=== PATIENT | female | born 1995 | race Caucasian/White ===

== ENCOUNTER 2018-08-21 07:46 | Emergency (ER) | payer OTHER, SELFPAY ==
[2018-08-21 07:54] VITALS: BP 127/77; PULSE 72; RESP 16; TEMP 36.3; O2SAT 97
--- NOTE | 2018-08-21 08:06 | ED.GENADUL_ITS ---
Discharge Plan Disposition Patient Disposition: HOME Condition: Stable Discharge Details Chief Complaint: Sorethroat Clinical Impression: Pharyngitis, URI (upper respiratory infection) Primary Care Provider: Judy Muller ED Provider: Re Franklin Home Meds and New Rx's Prescriptions: Continued medroxyprogesterone 150 MG/1 ML suspension 150 mg IM [id number] Qty: 1 RF: 4 Discharge Instructions Instructions: Pharyngitis (ED), Upper Respiratory Infection (ED) Additional Instructions: Drink plenty of fluids and get plenty of rest. Gargle with salt water, use Chloraseptic throat spray, or take Sucrets or other throat lozenges to help with sore throat. Alternate Tylenol and Motrin as needed and directed for pain. Use [id number] symptomatic treatment for your cold symptoms and sore throat. Follow-up with a primary care doctor in 1 week for reevaluation as needed. Return immediately to the emergency department any worsening or new concerning symptoms. Discharge Data Discharge Date/Time-TO BE ENTERED AT DEPARTURE: 08/21/18 08:30 Discharge Physician: Re Franklin Medical Decision Making 23-year-old female with a history of asthma currently not on any medications, who presents with sore throat for 2 weeks, runny nose and cough for the past week. Eating and drinking well and denies any fever. Did not receive a flu shot this year positive sick contacts recently. Vitals within normal limits. Afebrile. Patient appears nontoxic and in no acute distress. Very minimal sinus tenderness otherwise normal ENT exam. Normal oropharynx and no lymphadenopathy. Discussed with patient that her symptoms can be due to viral pharyngitis, URI, postnasal drip, flu, mono. Discussed that with normal oropharynx and no fever and no significant body aches or fatigue, flu and mono less likely. Patient was instructed to get plenty of rest, drink plenty of fluids, alternate Tylenol and Motrin, and use symptomatic treatment such as salt water gargles, Chloraseptic spray, Sucrets, and [id number] cough and cold medicine. Patient instructed to follow with primary care doctor return here immediately at anytime if worse. Patient declines work note. HPI General Mode of arrival: ambulatory . Date/Time Provider Initiated Documentation: 08/21/18 08:04 . Limitations to Documentation: no limitations . Information obtained by: patient . HPI Narrative: Pt is a 23yo F who presents to the ED with a complaint of sore throat for the past 2 weeks, runny nose and cough for the past week. Patient admits to recent sick contacts with patients with similar symptoms and diagnosed with the flu. Patient denies fever and states she otherwise has been eating and drinking normally. She has been taking Tylenol at times for pain, last dose yesterday morning. She states she did not receive the flu shot this year. Related Data Home Medications Medication Instructions Recorded Confirmed medroxyprogesterone 150 mg IM [id number] #1 vial 09/18/17 06/02/18 Previous Rx's Medication Instructions Recorded medroxyprogesterone 150 mg IM [id number] #1 vial 09/18/17 Allergies Allergy/AdvReac Type Severity Reaction Status Date / Time No Known Allergies Allergy Unverified 06/02/18 15:52 General Stated Complaint: Sorethroat MAE: 4 Review of Systems Review of Systems All systems reviewed & are unremarkable except as noted in HPI and below Constitutional Reports as per HPI, Denies chills and Denies fever(s) Eyes Denies blurry vision ENT Denies dizziness, Reports nasal congestion, Reports nasal discharge, Reports sore throat and Denies throat swelling Cardiovascular Denies chest pain and Denies dyspnea Respiratory Reports cough and Denies dyspnea Gastrointestinal Denies abdominal pain, Denies diarrhea and Denies vomiting Genitourinary Denies hematuria and Denies dysuria Musculoskeletal Denies back pain and Denies numbness Integumentary/Breasts Denies lesions and Denies rash Neurologic Denies dizziness and Denies numbness Allergic/Immunologic Denies throat swelling [facility] Medical History Asthma (Chronic) Surgical History History of tonsillectomy (Chronic) Tonsillectomy (~2005) Family History Mother Diabetes VTE (venous thromboembolism) Father Essential hypertension Thrombophilia Stroke Sister No problems noted. Sister No problems noted. Sister No problems noted. Sister No problems noted. Sister No problems noted. Brother No problems noted. Brother No problems noted. Grandfather Hyperlipidemia Neoplasm Grandfather Stroke Grandmother Diabetes Essential hypertension Heart disease Hyperlipidemia Asthma Grandmother No problems noted. Social History Smoking/Tobacco Use Status: Never alcohol intake: never substance use type: does not use Female Reproductive History Menstrual control method: progesterone injection Exam Const General: cooperative, healthy appearing and no acute distress HENMT Head: normal to inspection Ears: hearing grossly normal bilaterally and TM's normal bilaterally General nose exam: external nose normal Face and sinus: normal facial exam and sinus tenderness frontal (minimal) and maxillary (minimal ) Mouth: oral mucosae normal Throat: posterior oropharynx normal, uvula midline, tonsils absent and no uvular edema Eyes General: appearance normal, both eyes and all related structures Pupils: PERRL EOM: EOM intact bilaterally Neck Neck: normal visual inspection and No submandibular swelling Lymphatic: no lymphadenopathy noted Chest Chest: normal inspection of the chest and no tenderness Resp Effort & Inspection: normal respiratory effort and able to speak in complete s entences Auscultation: clear to auscultation bilaterally Cardio Rate: regular rate Rhythm: regular rhythm GI Inspection: normal to inspection Palpation: soft, not firm, not rigid and nontender Auscultation: normal bowel sounds Skin General skin exam: no rashes or lesions noted Neuro General: alert, awake and oriented x3 Cognition: normal cognition Speech: speech normal Motor: muscle tone normal throughout Sensory Exam: no sensory deficits noted Extrem General: normal to inspection, full ROM, normal capillary refill, no calf tenderness bilaterally and no edema Psych Appearance: grossly normal Mental Status: mental status grossly normal Speech and Movement: speech and movement normal Affect: normal affect Course Vital Signs Temperature 97.3 F L 08/21/18 07:54 Pulse 72 08/21/18 07:54 Respiratory Rate 16 08/21/18 07:54 Blood Pressure 127/77 08/21/18 07:54 Pulse Oximetry 97 08/21/18 07:54 Temperature 97.3 F L 08/21/18 07:54 Temperature Source Temporal Artery Scan 08/21/18 07:54 Pulse 72 08/21/18 07:54 Respiratory Rate 16 08/21/18 07:54 Respiratory Effort Non-Labored 08/21/18 07:59 Blood Pressure 127/77 08/21/18 07:54 Blood Pressure Position Sitting 08/21/18 07:54 Pulse Oximetry 97 08/21/18 07:54 Oxygen Delivery Method Room Air 08/21/18 07:54 Oxygen Flow Rate 0 08/21/18 07:54 Pain Level 6 08/21/18 07:54 Lab/Test Results Lab/Test Results: 08/21/18 07:50 Pharynx Streptococcus Screen (MADELIN) - Pending POC Strep Test-HILARY(Rapid) Start: 08/21/18 07:54 Freq: .Rapid Strep Test Status: Active Protocol: Document 08/21/18 07:59 SGL (Rec: 08/21/18 07:59 [id number]) Strep test-HILARY(Rapid)-POC POC-Strep test-HILARY (Rapid) Negative POC-Strep test-HILARY (Rapid) Negative
== END 2018-08-21 08:30 | disposition home or self-care (01) ==
LOC: ER 08:27
PROVIDERS: Emergency Provider Physician Assistant; PCP Nurse Practitioner Gerontology
DX: J02.9 Acute pharyngitis, unspecified (principal); J06.9 Acute upper respiratory infection, unspecified
CPT/HCPCS: 87880; 99282; 87081

== ENCOUNTER 2018-08-25 14:47 | Outpatient (REF) | payer OTHER, SELFPAY ==
--- NOTE | 2018-08-25 13:15 | PAPFT_PTH ---
PATIENT: Maisha Deras LOC: [facility] U#:[id number] AGE/SX: 23/F ROOM: RE08/25/[address]: Isabelle Le NP : 1995 BED: DIS: 08/25/2018 SPEC #: [id number] RECD: 08/25/18 17:57 STATUS: MARE COLLADO #: [id number] ABDI: 08/25/18 13:[address]: Isabelle Le NP DEPT: [facility] Cytology RECD BY: Rebekah Morales ENTERED: 08/25/18 17:57 SP TYPE: PAPFT OTHR DR: Judy Muller Tissues: 1 - CX/ENDOCX FOR PAP SMEARS Procedures: PAP THIN PREP/UVM Screening Comments: [id number] (CHLAMYDIA/GC)
[2018-08-26 13:06] LABS: Chlamydia Result Negative; GC Result Negative; Specimen Description SEE COMMENTS
== END 2018-08-25 15:07 ==
LOC: LBN 14:47
PROVIDERS: PCP Nurse Practitioner Gerontology; Visit Provider Nurse Practitioner Women's Health
DX: Z11.3 Encounter for screening for infections with a predominantly sexual mode of transmission (principal); Z12.4 Encounter for screening for malignant neoplasm of cervix; Z11.51 Encounter for screening for human papillomavirus (HPV)
CPT/HCPCS: 87491; 87591; 88142

== ENCOUNTER 2019-01-15 09:54 | Emergency (ER) | payer SELFPAY ==
[2019-01-15 09:58] VITALS: BP 127/77; PULSE 118; RESP 12; TEMP 36.9; O2SAT 97
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
== END 2019-01-15 10:21 | disposition home or self-care (01) ==
PROVIDERS: Emergency Provider Physician Assistant; PCP Nurse Practitioner Gerontology
DX: S06.0X0A Concussion without loss of consciousness, initial encounter (principal); Y00.XXXA Assault by blunt object, initial encounter; Y99.0 Civilian activity done for income or pay
CPT/HCPCS: 99282

== ENCOUNTER 2020-11-04 01:45 | Emergency (ER) | payer OTHER, SELFPAY ==
[2020-11-04 01:50] VITALS: BP 147/120; PULSE 109; RESP 18; TEMP 36.7; O2SAT 98
--- NOTE | 2020-11-04 02:00 | RT.EKG_ITS ---
APPROVED REPORT Exam: Resting ECG Patient Location: E HR:85 bpm ECG Measurements Heart Rate 85 AXIS VT 124 P 46 QRSd 68 QRS 41 QT 348 T 21 QTc 416 Conclusion Sinus rhythm...normal P axis, V-rate 60- 99 I have reviewed and interpreted ECG and agree with software generated interpretation. Normal Electrocardiogram
[2020-11-04 02:06] VITALS: BP 147/111
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
[2020-11-04] MEDS: LORazepam 1 MG TAB PO ×2 (02:19→03:19)
[2020-11-04 02:53] LABS: *AMPHETAMINES SCREEN URINE Negative (Negative); *BARBITURATES SCREEN URINE Negative (Negative); *BENZODIAZEPINES SCREEN URINE Negative (Negative); Cannabinoids THC Negative (Negative); Cocaine Screen,Urine Negative (Negative); METHADONE URINE SCREEN Negative (Negative); OPIATES URINE SCREEN Negative (Negative)
[2020-11-04 02:54] VITALS: BP 129/84; PULSE 94; RESP 18; O2SAT 100
[2020-11-04 02:54] LABS: Tricyclic Antidepressants Negative (Negative)
--- NOTE | 2020-11-04 06:41 | NUR.NOTE ---
REFERRAL TO CARE MANAGEMENT FOR FOLLOW CARE REGARDING ED VISIT. Nursing Note:
== END 2020-11-04 03:33 | disposition home or self-care (01) ==
PROVIDERS: Emergency Provider Student in an Organized Health Care Education/Training Program; PCP Nurse Practitioner Family
DX: F41.0 Panic disorder [episodic paroxysmal anxiety] (principal); F44.7 Conversion disorder with mixed symptom presentation; M54.2 Cervicalgia; T76.11XA Adult physical abuse, suspected, initial encounter; Y07.03 Male partner, perpetrator of maltreatment and neglect
CPT/HCPCS: 80307; 81025; 93005; 99283; 93010

== ENCOUNTER 2021-11-01 13:23 | Emergency (ER) | payer OTHER, SELFPAY ==
[2021-11-01 13:25] VITALS: BP 119/96; PULSE 101; RESP 16; TEMP 36.2; O2SAT 97
[2021-11-01 13:45] VITALS: RESP 16
[2021-11-01] MEDS: Ondansetron 4 MG/2 ML VIAL IVP (14:07)
[2021-11-01] MEDS: Normal Saline 1,000 ML 1000 ML IV ×2 (14:08→15:28)
[2021-11-01 14:33] LABS: Abs Immature Grans 0.04 10^3/uL (0.0-0.06); Absolute Basophil Count 0.01 10^3/uL (0.0-0.2); Absolute Eosinophil Count 0.08 10^3/uL (0.0-0.7); Absolute Lymphocyte Count 0.53 10^3/uL (1.2-3.4); Absolute Monocyte Count 0.63 10^3/uL (0.1-0.8); Basophils % 0.1; Eosinophils % 0.7; HCT 44.4 % (36.0-46.0); HGB 15.1 g/dL (11.2-15.7); Immature Grans % 0.4; Lymphocytes % 4.8; MCH 30.3 pg (27.0-33.0); MPV 8.7 fL (8.0-11.0); Monocytes % 5.7; Neutrophils % 88.3; Nucleated RBC 0 %; Platelet Count 381 10^3/uL (130-400); RBC 4.99 10^6/uL (3.93-5.22); RDW 11.9 % (11.7-14.6); WBC 10.99 10^3/uL (4.4-10.8)
[2021-11-01 14:38] LABS: Bilirubin Negative (Negative); Blood Moderate (Negative); Clarity Clear (Clear); Glucose Negative (Negative); Ketones Negative (Negative); Leukocyte Esterase Negative (Negative); Nitrite Negative (Negative); Urobilinogen 0.2 EU/dL (Up TO 0.2)
[2021-11-01 14:47] LABS: ALT 24 U/L (14-59); AST 13 U/L (15-37); Albumin 4.9 g/dL (3.4-5.0); Alkaline Phosphatase 75 U/L (46-116); Anion Gap 12.2 mmol/L (3-11); BUN 24 mg/dL (7-18); Bilirubin, Total 0.8 mg/dL (0.2-1.0); CO2 25.8 mmol/L (21.0-32.0); CREATININE 1.1 mg/dL (0.55-1.02); Calcium 9.1 mg/dL (8.5-10.1); Chloride 101 mmol/L (98-107); Glucose 133 mg/dL (74-106); Potassium 3.7 mmol/L (3.5-5.1); Sodium 139 mmol/L (136-145); Total Protein 8.7 g/dL (6.4-8.2)
[2021-11-01 14:54] LABS: Epithelial Cells Few HPF (Negative); WBC Negative HPF (0-5)
[2021-11-01 14:55] LABS: Bacteria Negative HPF (Negative); C & S Indicated? No; Casts Negative LPF (Negative); Crystals Negative HPF (Negative); Mucus Trace (Negative)
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
[2021-11-01 16:28] VITALS: BP 101/65; PULSE 90; RESP 17; TEMP 36.8; O2SAT 96
== END 2021-11-01 16:49 | disposition home or self-care (01) ==
LOC: ER 16:39
PROVIDERS: Emergency Provider Nurse Practitioner Family; PCP Nurse Practitioner Family
DX: T50.1X1A Poisoning by loop [high-ceiling] diuretics, accidental (unintentional), initial encounter (principal); R11.2 Nausea with vomiting, unspecified; F41.1 Generalized anxiety disorder
CPT/HCPCS: 36415; 80053; 81025; 96361; 96374; 99284; 81003; 81015; 83735; 85025; 99283; J2405

== ENCOUNTER 2023-11-30 14:45 | Emergency (ER) | payer SELFPAY ==
[2023-11-30 14:47] VITALS: BP 161/97; PULSE 127; RESP 18; TEMP 37.1; O2SAT 99
--- NOTE | 2023-11-30 15:00 | RT.EKG_ITS ---
APPROVED REPORT Exam: Resting ECG Reason for Exam: heart pounding Patient Location: E HR:105 bpm ECG Measurements Heart Rate 105 AXIS NM 126 P 47 QRSd 70 QRS 16 QT 321 T -2 QTc 424 Conclusion Sinus tachycardia at a rate of 105 without acute ischemic change with normal intervals.
--- NOTE | 2023-11-30 15:05 | W.ED.GENAD ---
Discharge Plan Disposition Patient Disposition: Home Condition: Stable Discharge Details Clinical Impression: Heart palpitations, Dentalgia Primary Care Provider: Yesi Mas ED Provider: Kath Mckeon Home Meds and New Rx's Prescriptions: New penicillin V potassium 500 mg tablet 500 mg PO QID Qty: 28 0RF No Action Kyleena 17.5 mcg/24 hr (5 years) intrauterine device 1 insert IY ONCE Qty: 1 0RF citalopram 10 mg tablet 10 mg PO DAILY Patient Comments: TAKE 1 TAKE AB BY MOUTH ONCE DAILY dextroamphetamine-amphetamine 15 mg tablet 15 mg PO BID Patient Comments: TAKE ONE TABLET BY MOUTH TWICE A DAY acetaminophen [Tylenol] 325 mg Tablet 650 mg PO DAILY Discharge Instructions Instructions: Heart Palpitations (ED), Toothache (ED) Additional Instructions: Please follow-up with your dentist. Continue taking over the counter medication as needed. Return to the Emergency Department with any worsening symptoms or any other concerns. Discharge Data Discharge Date/Time-TO BE ENTERED AT DEPARTURE: 11/30/23 15:30 HPI General Date/Time Provider Initiated Documentation: 11/30/23 14:48. HPI Narrative: The patient is a 28-year-old female with a history of ADHD, anxiety, panic attacks who comes emergency department for dental pain, heart pounding sensation. The patient reports that she has had dental issue for the past 4 months but has been having a hard time seeing her dentist because of insurance reasons. Reports last night the left upper molar started bothering her once more. Reports normally when it does act up she takes [id number] medication which helps and goes away after 4 hours but it had not. Reports she subsequently felt the heart pounding sensation and felt that her left arm from the elbow down was tingly. Denies any trauma or injury to her mouth. Reports she has tasted metallic taste in her mouth during this. Denies any fevers or chills. Denies any cough or shortness of breath. Denies nausea or vomiting. Denies abdominal pain. Denies concern. Reports she was at her baseline health prior. Related Data Home Medications Medication Instructions Recorded Confirmed levonorgestrel 17.5 mcg/24 hrs 1 insert intrauterine ONCE #1 ea 08/25/18 11/30/23 (5yrs) 19.5mg intrauterine device (Kyleena) acetaminophen 325 mg tablet 650 mg PO DAILY 11/01/21 11/30/23 (Tylenol) citalopram 10 mg tablet 10 mg PO DAILY 11/30/23 11/30/23 dextroamphetamine-amphetamine 15 15 mg PO BID 11/30/23 11/30/23 mg tablet penicillin V potassium 500 mg 500 mg PO QID #28 tabs 11/30/23 tablet Previous Rx's Medication Instructions Recorded levonorgestrel 17.5 mcg/24 hrs 1 insert intrauterine ONCE #1 ea 08/25/18 (5yrs) 19.5mg intrauterine device (Kyleena) penicillin V potassium 500 mg 500 mg PO QID #28 tabs 11/30/23 tablet Allergies Allergy/AdvReac Type Severity Reaction Status Date / Time No Known Allergies Allergy Verified 11/30/23 14:52 General Stated Complaint: DentalOral MAE: 3 Review of Systems Narrative: Review of systems are negative except as mentioned. Exam Narrative Exam Narrative: The patient is in no acute distress. She is handing her secretions well and speaking in full sentences with clear voice. Oral mucosal membranes are moist. Patient has tenderness to palpation to tooth #15 without visualized or palpable gumline abscess. She has no fullness to the soft or hard palate or the floor of the mouth. She has no trismus. She has no submandibular fullness. Her heart is regular in rate and rhythm. Her lungs are clear to auscultation bilaterally. Her abdomen is soft with normal bowel sounds and nontender to palpation throughout. The patient has equal radial pulses. No midline C-spine tenderness is noted to palpation. The patient has equal strength and sensation which is symmetric to bilateral upper extremities. The patient has intact sensation to the back of the neck and head with equal strength to bilateral deltoids, biceps, wrist and finger extension, finger flexion and able to move fingers apart with equal strength bilaterally. The patient has intact trunk sensation to light touch throughout. Course Vital Signs Vital signs: Vital Signs Temperature 37.1 C 11/30/23 14:47 Pulse 127 H 11/30/23 14:47 Respiratory Rate 18 11/30/23 14:47 Blood Pressure 161/97 H 11/30/23 14:47 Pulse Oximetry 99 11/30/23 14:47 Temperature 37.1 C 11/30/23 14:47 Pulse 127 H 11/30/23 14:47 Respiratory Rate 18 11/30/23 14:47 Blood Pressure 161/97 H 11/30/23 14:47 Pulse Oximetry 99 11/30/23 14:47 Oxygen Delivery Method Room Air 11/30/23 14:47 Oxygen Flow Rate 0 11/30/23 14:47 Medical Decision Making Apart from tenderness to palpation to her tooth physical exam is otherwise benign without any focal deficit. She arrives hemodynamically stable. She has no personal risk factors for cardiac or lung disease and denies family history of early onset cardiac disease. I ordered an EKG and if unremarkable plan is to prescribe antibiotics and will hold off on cardiac workup. She describes her chest discomfort as pounding sensation since dental pain onset last night and has been constant. EKG is done. Apart from tachycardia it is nondiagnostic. I have updated the patient on EKG interpretation and plan for discharge. I told her I will send a prescription to her preferred pharmacy for antibiotics for the next few days. I encouraged her to follow-up with her dentist and urged her to return to the emergency department with any worsening symptoms or any other concerns. Tachycardia improved on its own prior to discharge. Quality:[facility] Health Related Social Needs: No Data to Display [facility] All Active Problems (Updated 11/30/23 @ 15:16 by Kath Mckeon DO) Dentalgia (Acute) Heart palpitations (Acute) Panic attack (Acute) Major depressive disorder (Chronic) IUD surveillance (Chronic) Kyleena inserted 08/2018 Generalized anxiety disorder (Chronic) ADHD (attention deficit hyperactivity disorder) (Chronic) Allergic rhinitis (Chronic) Medical History Asthma Surgical History S/P tonsillectomy Family History Mother Diabetes Father Thrombophilia Stroke Hypertension Sister No problems noted. Sister No problems noted. Sister No problems noted. Sister No problems noted. Sister No problems noted. Brother No problems noted. Brother No problems noted. Maternal Grandfather Hyperlipidemia Neoplasm Maternal Grandmother Asthma Hypertension Heart disease Hyperlipidemia Diabetes Paternal Grandfather Stroke Paternal Grandmother No problems noted. Social History (Reviewed 11/02/21 @ 11:15 by BHAVANA Callaway Smoking/Tobacco Use Status: Current every day Tobacco Type: e-cigarettes Smoking risk assessment performed?: Yes Alcohol Intake: current Alcohol Intake frequency: a few times a week Drug use: Never Substance use type: does not use Do you feel safe at home: Yes Do you feel safe in your relationship?: Yes Female Reproductive History Menstrual control method: progestin IUCD (Kyleena Lot [id number] EXP 08/2020) History History 0 Para Hx # Term Pregnancies Multiple births Hx # Pregnancies Ectopic pregnancies AB induced Hx Number of Living Children AB spontaneous
[2023-11-30 15:28] VITALS: BP 161/97; PULSE 89; RESP 18; TEMP 37.1; O2SAT 99
== END 2023-11-30 15:30 | disposition home or self-care (01) ==
LOC: ER 15:36
PROVIDERS: Emergency Provider Emergency Medicine; PCP Nurse Practitioner Family
DX: K08.89 Other specified disorders of teeth and supporting structures (principal); R00.2 Palpitations; F41.9 Anxiety disorder, unspecified; F17.290 Nicotine dependence, other tobacco product, uncomplicated
CPT/HCPCS: 93005; 99283; 93010

== ENCOUNTER 2025-03-30 15:05 | Outpatient (REF) | payer SELFPAY ==
[2025-04-03 12:09] LABS: Chlamydia Result Negative (Negative); GC Result Negative (Negative)
== END 2025-03-30 15:06 | disposition home or self-care (01) ==
LOC: LBN 15:05
PROVIDERS: PCP Nurse Practitioner Family; Visit Provider Obstetrics & Gynecology
DX: Z11.3 Encounter for screening for infections with a predominantly sexual mode of transmission (principal)
CPT/HCPCS: 87491; 87591; 87480; 87510; 87660

== ENCOUNTER 2025-04-05 08:25 | Day surgery (SDC) | payer OTHER, SELFPAY ==
[2025-04-05] VITALS (16 sets, daily range): BP systolic 100–134; BP diastolic 56–92; PULSE 62–95; RESP 13–21; TEMP 36.2–37; O2SAT 96–100; BMI 32.1
--- NOTE | 2025-04-05 08:03 | W.PM.HP.N ---
Date of service: 04/05/25 Time of Service: 08:14 Assessment and Plan Assessment and plan (1) H/O psychological trauma, presenting hazards to health: Status: Acute Assessment and plan: 29 yo G0 - H/O anxiety / depression / ADHD - BMI 32.4 - Sexually active; non-committed heterosexual - Contraception: Kyleena (from 2019) - H/O sexual abuse: Denies - Last pap smear 08/25/2018: Neg cytology - Completed HPV vaccine - - - - - - - - - - - - - 03/30/2025 (Evelinlinda): Patient presents today for STD testing. States that she has been sexually active with 2 different partners in the last year; most recent 1 recently informed her that he was unfaithful. She denies any concerning symptoms. She request testing for gonorrhea, chlamydia, and trichomonas; states that she has had HIV, syphilis, and hepatitis testing within the last 2 months at another facility. Patient noted to be due for Pap smear and have an outdated means of contraception. Patient expresses profound hesitation regarding replacement of Kyleena citing a very traumatic experience at her first placement. Patient exhibits notable hesitation to replacement given her initial experience. We discussed varying levels of potential intervention to accommodate her concerns. We discussed the potential for a support person with premedication and use of lidocaine during procedure versus consideration of placement under anesthesia in the operating room. We discussed risks and benefits of both; we discussed that doing the procedure in the OR would have the increased risk of exposure to anesthesia and potential complications from this. Patient verbalized understanding and expresses a strong desire for placement under anesthesia. We discussed the different types of IUDs and their associated risks, benefits, and length of utility. Patient verbalizes understanding and wishes to continue with her Kyleena. Patient was consented for removal and replacement of Kyleena IUD as well as Pap smear under anesthesia. 04/05/2025 (Evelinlinda): Patient presents for scheduled for removal and replacement of Kyleena IUD as well as Pap smear under anesthesia. The procedure was again reviewed with the patient in detail. We once again reviewed that, as it can have a break skin, there is always a risk of bleeding, infection, and damage to surrounding tissues; particularly in this case we worry about perforation of the uterus which could lead to involvement of surrounding structures and necessitate more invasive procedures or prolonged observation. We discussed that anytime we go to the OR there is always a risk of the need for blood transfusion. Patient verbalized understanding and all questions answered to patient satisfaction. She was consented for removal and placement of Kyleena IUD with Pap smear under anesthesia. (2) IUD complication: Status: Acute (3) Possible exposure to STI: Status: Acute History of Present Illness Narrative: 29 yo G0 presents for scheduled removal and replacement of Kyleena IUD as well as Pap smear under anesthesia due to notable history of trauma precluding her care up to this point. [facility] All Active Problems (Updated 04/05/25 @ 08:10 by Monse Constantino DO) Possible exposure to STI (Acute) IUD complication (Acute) Encounter for IUD removal (Acute) H/O psychological trauma, presenting hazards to health (Acute) Panic attack (Acute) Major depressive disorder (Chronic) IUD surveillance (Chronic) Kyleena inserted 08/2018 Generalized anxiety disorder (Chronic) ADHD (attention deficit hyperactivity disorder) (Chronic) Allergic rhinitis (Chronic) Medical History Asthma Surgical History S/P tonsillectomy Family History Mother Diabetes Father Thrombophilia Stroke Hypertension Sister No problems noted. Sister No problems noted. Sister No problems noted. Sister No problems noted. Sister No problems noted. Brother No problems noted. Brother No problems noted. Maternal Grandfather Hyperlipidemia Neoplasm Maternal Grandmother Asthma Hypertension Heart disease Hyperlipidemia Diabetes Paternal Grandfather Stroke Paternal Grandmother No problems noted. Social History Smoking/Tobacco Use Status: Current every day Tobacco Type: e-cigarettes Smoking risk assessment performed?: Yes Alcohol Intake: current Alcohol Intake frequency: a few times a week Drug use: Never Substance use type: does not use Housing: apartment Do you feel safe at home: Yes Do you feel safe in your relationship?: Yes Female Reproductive History Menstrual control method: progestin IUCD (Kyleena Lot [id number] EXP 08/2020) History History 0 Para Hx # Term Pregnancies Multiple births Hx # Pregnancies Ectopic pregnancies AB induced Hx Number of Living Children AB spontaneous Meds Allergies and Home Medications Allergies Allergy/AdvReac Type Severity Reaction Status Date / Time acetaminophen (From Vicodin) AdvReac Mild Nausea Verified 04/04/25 13:00 hydrocodone (From Vicodin) AdvReac Mild Nausea Verified 04/04/25 13:00 Home Medications ?Medication ?Instructions ?Recorded ?Confirmed ?Type levonorgestrel 17.5 mcg/24 hr (up 1 insert intrauterine ONCE #1 ea 08/25/18 04/04/25 Rx to 5 yrs) 19.5mg intrauterine device (Kyleena) acetaminophen 325 mg tablet 650 mg PO DAILY 11/01/21 04/04/25 History (Tylenol) buspirone 10 mg tablet 10 mg PO TID 03/30/25 04/04/25 History citalopram 20 mg tablet (Celexa) 20 mg PO DAILY 03/30/25 04/04/25 History lisdexamfetamine 30 mg capsule 30 mg PO DAILY 03/30/25 04/04/25 History (Vyvanse) Exam Narrative Exam Narrative: General: Well nourished female resting comfortably Pulm: No overt respiratory distress; CTAB Card: RRR; no ovett arrythmias or murmurs Abd: Gravid, non-tender Ext: No swelling Affect: Calm, cooperative Const General: cooperative and healthy appearing Nutritional Appearance: well nourished Orientation: alert and awake HENMT Head: normocephalic Resp Effort & Inspection: normal respiratory effort GI Inspection: other (without overt distension) Skin General skin exam: no rashes or lesions noted Neuro General: patient alert and patient awake Extrem General: normal to inspection Psych Appearance: well kempt Mental Status: mental status grossly normal Affect: normal affect Time Spent Time spent with Patient: 40-54 minutes Time was spent: preparing to see the patient(eg.review tests), obtaining and/or reviewing separately otained hiistory, ordering medications,tests, procedures, referring, communicating with other health manager intensive care unit and counseling the patient
[2025-04-05] MEDS: Lactated Ringers 1,000 ML 150 ML IV (09:02)
[2025-04-05] MEDS: Acetaminophen 500 MG TAB 1000 MG PO (09:14)
--- NOTE | 2025-04-05 09:23 | W.ANESPRE ---
General Info Date of Service Date Performed: 04/05/25 Height: 5 ft 2 in Weight: 79.6 kg Body Mass Index (BMI): 32.1 Surgical Procedure: Operation Date: 04/05/25 09:40 Proposed Procedure Side Surgeon p Removal & Insertion of IUD under Anesthesia/ PAP Smear Monse Constantino, Meds Allergies and Home Medications Allergies Allergy/AdvReac Type Severity Reaction Status Date / Time hydrocodone (From Vicodin) AdvReac Mild Nausea Verified 04/05/25 08:43 Home Medication ?Medication ?Instructions ?Recorded levonorgestrel 17.5 mcg/24 hr (up 1 insert intrauterine ONCE #1 ea 08/25/18 to 5 yrs) 19.5mg intrauterine device (Kyleena) acetaminophen 325 mg tablet 650 mg PO DAILY PRN 11/01/21 (Tylenol) buspirone 10 mg tablet 10 mg PO TID 03/30/25 citalopram 20 mg tablet (Celexa) 20 mg PO DAILY 03/30/25 lisdexamfetamine 30 mg capsule 30 mg PO DAILY 03/30/25 (Vyvanse) Current Visit Medications: Current Medications Generic Name Dose Route Start Last Admin Trade Name Freq PRN Reason Stop Dose Admin Ringer's Solution 1,000 mls @ 150 mls/hr 04/05/25 06:00 04/05/25 09:02 IV 04/05/25 23:59 150 mls/hr INFUSION CRISTINA Administration IV Miscellaneous Supplies 1 each 04/05/25 06:00 Iv Access IV 04/05/25 23:59 DIRECTED CRISTINA Sodium Chloride 0 ml 04/05/25 06:00 Normal Saline Flush 10 Ml Syr IV 04/05/25 23:59 PRN PRN Sodium Chloride 0 ml 04/05/25 06:00 Normal Saline 10 Ml Vial IJ 04/05/25 23:59 DIRECTED PRN Sterile Water 0 ml 04/05/25 06:00 Water,Injection,Sterile 10 Ml Vial IJ 04/05/25 23:59 DIRECTED PRN PFSH Active Problems Active Problems: Problem Status Onset Code Possible exposure to STI Acute Z20.2 IUD complication Acute T83.9XXA Encounter for IUD removal Acute Z30.432 H/O psychological trauma, presenting hazards to health Acute Z91.49 Panic attack Acute F41.0 Major depressive disorder Chronic F32.9 IUD surveillance Chronic Z30.431 Generalized anxiety disorder Chronic F41.1 ADHD (attention deficit hyperactivity disorder) Chronic F90.9 Allergic rhinitis Chronic J30.9 Medical History Medical History Asthma Surgical History Surgical History S/P tonsillectomy Tobacco Smoking/Tobacco Use Status: Current every day Tobacco Type: e-cigarettes Passive smoking exposure: Yes Alcohol Alcohol Intake: current Alcohol intake frequency: a few times a week Substance Use Substance use: Never Substance use type: does not use Prental History History 0 Para Hx # Term Pregnancies Multiple births Hx # Pregnancies Ectopic pregnancies AB induced Hx Number of Living Children AB spontaneous Vital Signs and Lab Results Vital Signs Most Recent Vital Signs in EMR: Most Recent Vital Signs Temp Pulse Resp BP Pulse Ox 36.4 C L 95 H 16 134/92 H 96 04/05/25 08:30 04/05/25 08:30 04/05/25 08:30 04/05/25 08:30 04/05/25 08:30 Point of Care Results Point of Care Results: POC- Test(urine) Negative 04/05/25 08:48 Lab Results Infectious Disease: N.gonorrhoeae DNA Probe, (Negative) Negative 03/30/25, 15:00 Anesthesia Assessment and Plan Anesthesia History Personal History: No History of Anesthesia Complications Family History: No Family History of Anesthesia Complications Exercise Tolerance Exercise Tolerance: Metabolic Equivalents>4 Cardiac & Pulmonary Exam Cardiac Exam: Normal S1/S2 Heart Sounds Pulmonary Exam: Clear Bilateral Breath Sounds Implantable Cardiac Device Does patient have a Pacemaker or an ICD?: No Airway Exam Known Difficult Airway: No Mallampati Class: 3 Mouth Opening: Narrow (< 3cm) Thyromental Distance: Greater than 3 cm Neck Range of Motion: Full ROM Neck Circumference: Normal Teeth Condition: Normal Dentition ASA Classification ASA Score: ASA 2 Emergency Case?: No NPO Status NPO Status: NPO Clears >2 hours, Solids >8 hours Status Status: Negative HCG Anesthesia Plan Resuscitation Status: Full Code Anesthesia Technique: General Anesthesia Airway Planned: Endotracheal Tube Monitors Used: Standard Monitors Preoperative Comments:: 29 yo for IUD replacement/PAP. Currently naseated. Sig PMHx: asthma (albuterol 3-4 times a week), GERD (omeprazole 20 mg daily. States always has pain in her stomach, feels that it is poorly controlled. Also feels that it could just be anxiety), panic attacks, depression (citalopram, buspirone), ADHD (Vyvanse). e-cig, occ EtOH ECG: sinus tach.
--- NOTE | 2025-04-05 11:06 | W.PROCNOTE ---
Date of service: 04/05/25 Time of Service: 11:06 Procedure Note Date of procedure: 04/05/25 Procedure: Replacement of Kyleena IUD and Pap smear collection under anesthesia Surgeon/Proceduralist/Physician: Monse Constantino Procedure Diagnosis: History of psychiatric trauma; IUD Procedure Indications: 29-year-old G0 with IUD setting history of traumatic pelvic exams historically causing her to avoid pelvic exams and replacement of her IUD. She was counseled on risks, benefits, and alternatives in the office and opted for collection of Pap smear and replacement of Kyleena IUD under anesthesia. Procedure Description: Patient resting to the OR with IV fluids running. Immediately prior to proceeding to the OR, she voided. No prophylactic antibiotics were indicated. When she arrived to the OR, anesthesia was established and found to be adequate. She was positioned into the modified dorsolithotomy position with her legs up in yellowfin stirrups. A timeout was performed. An lubricated speculum was placed and the cervix was easily visualized. Pap smear was collected and set aside. The cervix was cleaned off with 3 passes of Betadine. The anterior lip was grasped with single-tooth tenaculum, and 2 blue strings were appreciated at the cervix. Strings were grasped with a ring forcep, and her prior IUD was removed in total without issue. The cervix was then dilated to accommodate an IUD applicator, and the uterus was sounded to 8 cm. The IUD was removed from its wrapping (Lot [id number], expiration May 2027) and the flange was set to 7.5 cm. The IUD was then introduced using industry standards without issue. The strings were cut to 3 cm and tucked into the posterior fornix. All instruments removed and good hemostasis was appreciated. Patient tolerated the procedure well and was taken to PACU in good condition.
[2025-04-05] MEDS: Droperidol 5 MG/2 ML VIAL 0.625 MG IVP (11:08)
--- NOTE | 2025-04-05 12:38 | W.ANESPOSTOP ---
Postoperative Evaluation Date, Time and Location Date Performed: 04/05/25 Time Performed: 12:00 Patient Location: Day Surgery Unit Vital Signs Most Recent Imported Vital Signs: Most Recent Vital Signs Temp Pulse Resp BP Pulse Ox 36.2 C L 75 16 105/76 96 04/05/25 12:05 04/05/25 12:05 04/05/25 12:05 04/05/25 12:05 04/05/25 12:05 Pain Score Most Recent Pain Score: Most Recent Pain Score Pain Level 0 04/05/25 12:05 Assessment Mental Status: Awake (Alert & Oriented to Patient Baseline) Airway and Respiratory Function: Patent airway with normal (patient baseline) respiratory exam Cardiovascular Function: Hemodynamically Stable Hydration Status: Adequately Hydrated Nausea & Vomiting: No Nausea or Vomiting Pain: Pt. Denies Any Pain Peripheral Nerve Block: Patient did not receive a nerve block
== END 2025-04-05 12:15 | disposition home or self-care (01) ==
PROVIDERS: Visit Provider Obstetrics & Gynecology
PROC: (CPT 58300; principal; 2025-04-05 09:30)
DX: Z30.433 Encounter for removal and reinsertion of intrauterine contraceptive device (principal); Z20.2 Contact with and (suspected) exposure to infections with a predominantly sexual mode of transmission; Z91.49 Other personal history of psychological trauma, not elsewhere classified
CPT/HCPCS: 58300; 58301; 88142; J0330; J1100; J1790; J1885; J2003; J2250; J2405; J2704

== ENCOUNTER 2025-07-27 11:52 | Emergency (ER) | payer OTHER, SELFPAY ==
[2025-07-27 12:11] VITALS: BP 139/91; PULSE 84; RESP 16; TEMP 37; O2SAT 98
[2025-07-27 12:18] VITALS: BP 139/91; PULSE 84; RESP 16; TEMP 37; O2SAT 98
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
== END 2025-07-27 13:08 | disposition home or self-care (01) ==
PROVIDERS: Emergency Provider Physician Assistant
DX: J01.90 Acute sinusitis, unspecified (principal)
CPT/HCPCS: 99283 ×2